=== PATIENT | male | born 1980 | race African-American/Black ===

== ENCOUNTER 2025-03-26 00:13 | Emergency (ER) | payer SELFPAY ==
[~2025-03-26] VITALS: Ht 177.8 cm; Wt 84.0 kg
[2025-03-26 01:26] VITALS: PULSE 86; RESP 20; O2SAT 97
[2025-03-26] MEDS: IPRATROPIUM/ALBUTEROL 0.5-3(2.5)MG/3ML NEB HHN ONE (01:26)
[2025-03-26] MEDS ORDERED: ALBU90AE INH (01:46)
[2025-03-26] MEDS ORDERED: P20 MT (01:46)
[2025-03-26 02:28] VITALS: BP 159/81; PULSE 75; RESP 16; TEMP 36.8; O2SAT 100
== END 2025-03-26 02:33 | disposition home or self-care (01) ==
LOC: ER 00:13
DX: J98.01 Acute bronchospasm (principal)
CPT/HCPCS: 71045; 94640; 93005; 99283; Z7610 ×2; 94070; 94664